=== PATIENT | female | born 1990 | race Caucasian/White ===

== ENCOUNTER 2019-01-20 11:07 | Emergency (ER) | payer SELFPAY ==
[~2019-01-20] VITALS: Ht 170.2 cm; Wt 52.7 kg
[2019-01-20] MEDS ORDERED: PREDNISONE (11:34)
[2019-01-20] MEDS ORDERED: ALBUTEROL (11:34)
[2019-01-20] MEDS ORDERED: ALBUTEROL/IPRATROPIUM 2.5MG/0.5MG, 3 ML ONE ×2 (11:40→11:47)
[2019-01-20] MEDS: ALBUTEROL/IPRATROPIUM 2.5MG/0.5MG, 3 ML NPPB SCH (11:42)
--- NOTE | 2019-01-20 11:46 | NUR ---
PT AMBULATORY TO ROOM STATING SHE NEEDS ASTHMA MEDICATION AND THAT HER EYE IS SWOLLEN AND "INFECTED." PT STATES SHE TOOK HER PREDNISONE AND HER ALBUTEROL THIS MORNING. RT AT BEDSIDE GIVING PT BREATHING TREATMENT. NADN. [facility]. CALL LIGHT IN REACH. PT RESTING IN [facility].
--- NOTE | 2019-01-20 12:01 | NUR ---
PT TO XRAY AT THIS TIME.
[2019-01-20 12:40] VITALS: BP 115/83
--- NOTE | 2019-01-20 12:43 | NUR ---
TASK RN: Patient/Caregiver given discharge instructions and they have confirmed that they understand the instructions. Patient ambulatory with steady gait.
== END 2019-01-20 12:49 | disposition home or self-care (01) ==
LOC: ED 12:47
DX: J45.41 Moderate persistent asthma with (acute) exacerbation (principal); L03.213 Periorbital cellulitis; Z88.0 Allergy status to penicillin; Z88.2 Allergy status to sulfonamides; Z88.8 Allergy status to other drugs, medicaments and biological substances
CPT/HCPCS: 71046; 93005; 94640; 99284; J7512; J7620